=== PATIENT | male | born 1980 | race Caucasian/White ===

== ENCOUNTER 2018-12-14 18:44 | Emergency (ER) | payer BC, OTHER ==
[2018-12-14] MEDS ORDERED: KETOROLAC TROMETHAMINE 60 MG/2 ML VIAL IM ONE (18:47)
--- NOTE | 2018-12-14 18:47 | PDOC ---
Rapid Medical Evaluation Time Seen by Provider: 12/14/18 18:46 Medical Evaluation: Allergies Allergy/AdvReac Type Severity Reaction Status Date / Time No Known Allergies Allergy Verified 09/27/17 22:41 12/14/18 18:47 HPI: Back pain x3 days after lifting PE: No gross deficits ORDERS: Torodol Discharge Disposition - Diagnosis Low back pain - Referrals - Patient Instructions - Post Discharge Activity
[2018-12-14 18:51] VITALS: BP 126/72; PULSE 59; TEMP 98.2; BMI 30.7
[2018-12-14] MEDS ORDERED: KETOROLAC TROMETHAMINE 60 MG/2 ML VIAL ONE (21:02)
--- NOTE | 2018-12-14 21:35 | PDOC ---
History of Present Illness - General Chief Complaint: Back Pain Stated Complaint: BACK PAIN Time Seen by Provider: 12/14/18 18:46 History Source: Patient Exam Limitations: No Limitations - History of Present Illness Initial Comments: 12/14/18 21:32 Complaint: Back pain patient is a healthy 38-year-old male has prior episodes of back pain, patient complaining of bilateral paravertebral pain today that comes in waves. No fever , no nausea or vomiting, no abdominal pain, no dysuria. No numbness, saddle anesthesia or incontinence. GENERAL/CONSTITUTIONAL: No fever, weakness. dizziness HEAD, EYES, EARS, NOSE AND THROAT: No change in vision. No ear pain or discharge. No sore throat. CARDIOVASCULAR: No chest pain RESPIRATORY: No shortness of breath or cough GASTROINTESTINAL: No pain, nausea, vomiting, diarrhea or constipation GENITOURINARY: No dysuria MUSCULOSKELETAL: No neck or back pain SKIN: No rash NEUROLOGIC: No headache, vertigo, loss of consciousness, or loss of sensation. GENERAL: The patient is awake, alert, and fully oriented, in no acute distress. HEAD: Normal with no signs of trauma. EYES: Pupils equal, round and reactive to light, sclera anicteric, conjunctiva clear. ENT: pharynx: no erythema, no exudate, uvula midline NECK: supple CHEST: clear, nontender, rr ABD: soft, nontender BACK: no tenderness or signs of injury EXTREMITIES: Normal range of motion, no edema. NEUROLOGICAL: Normal speech, normal gait. Cranial nerves II through XII grossly intact, no gross focal abnormalities SKIN: Warm, Dry Past History - Past Medical History Allergies/Adverse Reactions: Allergies Allergy/AdvReac Type Severity Reaction Status Date / Time No Known Allergies Allergy Verified 12/14/18 18:49 Home Medications: Ambulatory Orders Cyclobenzaprine HCl [Flexeril 10 mg] 10 mg PO TID PRN #20 tablet 09/28/17 Ibuprofen 600 mg PO QID PRN #20 tablet 09/28/17 Lidocaine 5% Patch [Lidoderm Patch -] 1 patch TP DAILY PRN #7 patch 09/28/17 Cyclobenzaprine HCl 10 mg PO TID PRN #21 tablet 12/14/18 COPD: No HTN: Yes - Surgical History GI Surgery: Yes (GASTRIC BYPASS) - Immunization History Immunization Up to Date: Yes - Psycho Social/Smoking Cessation Hx Smoking Status: No Smoking History: Never smoked Number of Cigarettes Smoked Daily: 0 Hx Alcohol Use: No Drug/Substance Use Hx: No Substance Use Type: Alcohol *Physical Exam - Vital Signs Last Vital Signs Temp Pulse Resp BP Pulse Ox 98.2 F 59 L 18 126/72 99 12/14/18 18:49 12/14/18 18:49 12/14/18 18:49 12/14/18 18:49 12/14/18 18:49 ED Treatment Course - Medications Given in the ED: ED Medications Discontinued Medications Generic Name Dose Route Start Last Admin Trade Name Jayson PRN Reason Stop Dose Admin Ketorolac Tromethamine 60 mg 12/14/18 18:47 12/14/18 21:15 Toradol Injection - IM 12/14/18 18:48 60 mg ONCE ONE Administration Medical Decision Making - Medical Decision Making 12/14/18 21:34 Patient with lower back pain, variant paravertebral, very vague, no signs of illness, no dysuria. No deep abdominal pain. No neurological symptoms. Patient had Toradol, feels better, patient at most was a 4, and came in waves bilaterally parous vertebral. No indication to do work-up for kidney stone, Mark, other acute issues. Discussed with patient at length. Patient will get cyclobenzaprine which she has had in the past. And continue with Motrin. Patient did not take any pain medicine prior to coming to ER. Patient has history of gastric bypass but has no symptoms related to that. Patient also states he can take Motrin. Has been prescription prescribed to him from here in the past. Discussed issues, findings, results, applicable medications and treatments and follow-up. All these were understood and all questions were answered 12/14/18 21:36 Discharge - Discharge Information Problems reviewed: Yes Clinical Impression/Diagnosis: Low back pain Qualifiers: Chronicity: acute Back pain laterality: unspecified Sciatica presence: without sciatica Qualified Code(s): M54.5 - Low back pain Condition: Stable Disposition: HOME - Admission No - Additional Discharge Information Prescriptions: Cyclobenzaprine HCl 10 mg PO TID PRN #21 tablet PRN Reason: Back Pain - Follow up/Referral Referrals: Josh Chan MD [Primary Care Provider] - Christos Galvan MD [Staff Physician] - - Patient Discharge Instructions Patient Printed Discharge Instructions: DI for Low Back Pain Additional Instructions: No heavy lifting or bending Apply ice to the area 20 minutes every 2 hours for the next 2 days Continue taking Motrin 600 mg every 6 hours for pain. You can also use the cyclobenzaprine 1 tablet every 8 hours as needed for spasm. This may make you drowsy and he should not drive while using this Return to the nearest ER if numbness, weakness, severe pain, problems with urinating or having bowel movements. Call orthopedist today for an appointment for further evaluation - Post Discharge Activity
== END 2018-12-14 21:49 | disposition home or self-care (01) ==
LOC: JERFT 18:44
PROC: 3E0233Z Introduction of Anti-inflammatory into Muscle, Percutaneous Approach (ICD-10-PCS; principal; 2018-12-14)
DX: M54.5 Low back pain (principal); I10 Essential (primary) hypertension; Z98.84 Bariatric surgery status
CPT/HCPCS: 99282-25